=== PATIENT | male | born 1935 | race Caucasian/White ===

== ENCOUNTER 2017-06-06 13:45 | Emergency (ER) | payer MEDICARE, OTHER ==
[2005-05-12 11:13] VITALS: BP 129/72
[~2017-06-06] VITALS: Ht 167.6 cm; Wt 90.9 kg
[2017-06-06 13:45] VITALS: BP 124/58; TEMP 98.9
[~2017-06-06 13:45] MED LIST: ASPIRIN E.C. 8181 MG PO; CALCIUM1 CAP PO; CLARITIN 1010 MG/TAB PO; CLARITIN10 MG PO; DULERA1 ARO IH; ELIDEL1% TP; FENTANYL 25 MCG TP; FUROSEMIDE PO; HCTZ 25MG TAB25 MG PO; HCTZ 25MG25 MG PO; HYTRIN 2MG CAPSU2 MG PO; IMODIUM 2MG CAPS2 MG PO; IRON325 M1 PO; ISORDIL 20MG20 M1 PO; LASIX 20MG TABL20 MG PO; LIDODERM 5% PATC1 EA TP; MIRAPEX0.25 MG PO; MULTIPLE VITAMI1 CAP PO; NEURONTIN800 MG/TAB PO; NEXIUM 40MG40 MG PO; NEXIUM PO; NITROSTAT0.4 MG SL; NITROSTAT0.4 MG/TAB SL; NORCO 325 MG-7.1 TAB PO; OSCAL 500 TAB500 MG PO; PAXIL 20MG20 MG PO; PERCOCET 325 MG1 TA2 PO; PLAVIX 75MG TAB75 MG PO; PROVENTIL0.09 MG/A1 IN; ROXICODONE 55 MG/TAB PO; RT SPIRIVA18 MCG IN; SINGULAIR 110 MG/TAB PO; TENORMIN 5050 MG/TAB PO; TERAZOSIN HCL PO; TYLENOL W/COD1 UDTAB PO; UNABLE; XARELTO10 MG PO; ZITHROMAX500 M2 PO; ZOCOR 40MG40 MG PO; ZOCOR40 MG PO; ZOLOFT 100MG100 MG PO; ZOLOFT100 MG PO
[2017-06-06 16:36] VITALS: PULSE 64
== END 2017-06-06 16:37 | disposition home or self-care (01) ==
LOC: COL.ER 13:45
DX: S01.112A Laceration without foreign body of left eyelid and periocular area, initial encounter (principal); J44.9 Chronic obstructive pulmonary disease, unspecified; I25.2 Old myocardial infarction; Z86.73 Personal history of transient ischemic attack (TIA), and cerebral infarction without residual deficits; Z86.79 Personal history of other diseases of the circulatory system; Z79.02 Long term (current) use of antithrombotics/antiplatelets; Z79.82 Long term (current) use of aspirin; W06.XXXA Fall from bed, initial encounter; W22.09XA Striking against other stationary object, initial encounter; Y92.009 Unspecified place in unspecified non-institutional (private) residence as the place of occurrence of the external cause

== ENCOUNTER → 2017-12-04 | Day surgery (SDC) | payer MEDICARE, OTHER ==
[2005-05-12 11:13] VITALS: BP 129/72
[~2017-12-04] VITALS: Ht 165.1 cm; Wt 93.6 kg
[~2017-12-04] MED LIST changes: +ASPIRIN 81M81 MG/TA2 PO; +ATROVENT NASAL15 ML NS; +BREO IH; +ELIQUIS 2.5 PO; +EPA FISH OIL1 SGL PO; +FLONASEALLERGY NS; +LEVAQUIN 750MG750 M1 PO; +PROTONIX 40MG T40 MG PO; +ZIAC 10/6.25M1 UDTAB PO
[2017-12-04 08:52] VITALS: BP 138/59; PULSE 59; TEMP 97.9
== END ==
LOC: COL.CAR 08:00
DX: I48.0 Paroxysmal atrial fibrillation (principal); I25.10 Atherosclerotic heart disease of native coronary artery without angina pectoris; Z95.820 Peripheral vascular angioplasty status with implants and grafts; Z95.1 Presence of aortocoronary bypass graft; Z79.82 Long term (current) use of aspirin; Z79.01 Long term (current) use of anticoagulants; Z87.891 Personal history of nicotine dependence; Z82.49 Family history of ischemic heart disease and other diseases of the circulatory system; Z68.34 Body mass index [BMI] 34.0-34.9, adult; E78.2 Mixed hyperlipidemia; I10 Essential (primary) hypertension; J44.9 Chronic obstructive pulmonary disease, unspecified; K90.0 Celiac disease; N40.0 Benign prostatic hyperplasia without lower urinary tract symptoms; R51 Headache; M43.04 Spondylolysis, thoracic region; M48.061 Spinal stenosis, lumbar region without neurogenic claudication; M89.38 Hypertrophy of bone, other site; M51.06 Intervertebral disc disorders with myelopathy, lumbar region; D50.9 Iron deficiency anemia, unspecified; N40.1 Benign prostatic hyperplasia with lower urinary tract symptoms; I73.9 Peripheral vascular disease, unspecified; M43.07 Spondylolysis, lumbosacral region; G89.29 Other chronic pain; G25.81 Restless legs syndrome; G47.30 Sleep apnea, unspecified; Z86.73 Personal history of transient ischemic attack (TIA), and cerebral infarction without residual deficits

== ENCOUNTER → 2018-04-06 | Outpatient (CLI) | payer MEDICARE, OTHER | LOC: COL.RAD 12:55 | DX: I72.3 Aneurysm of iliac artery (principal); I72.8 Aneurysm of other specified arteries; J84.10 Pulmonary fibrosis, unspecified; J43.9 Emphysema, unspecified; N28.1 Cyst of kidney, acquired; K80.20 Calculus of gallbladder without cholecystitis without obstruction; K43.9 Ventral hernia without obstruction or gangrene | CPT/HCPCS: Q9967 ==

== ENCOUNTER 2018-08-31 13:08 | Inpatient (IN) | payer MEDICARE, OTHER ==
[2005-05-12 11:13] VITALS: BP 129/72
[2018-08-31] VITALS (11 sets, daily range): BP systolic 110–173; BP diastolic 52–91; PULSE 60–70; TEMP 97.2–98.1
[~2018-08-31] VITALS: Ht 165.1 cm; Wt 90.8 kg
[2018-08-31 14:00] LABS: HEMATOCRIT 46.6 % (42.0-52.0); HEMOGLOBIN 15.1 g/dl (13.5-18.0); MEAN CELL VOLUME 95 fl (80.0-100.0); MEAN CORPUSCULAR HEMOGLOBIN 31 pg (27.0-31.0); MEAN CORPUSCULAR HGB CONC 32 g/dl (33.0-37.0); MEAN PLATELET VOLUME 11.7 fl (7.4-10.4); PLATELET COUNT 192 K/mm3 (130-400); RED BLOOD COUNT 4.89 M/mm3 (4.20-5.60); REDCELL DISTRIBUTION WIDTH-CV 15.6 % (11.5-14.5)
[2018-08-31 14:13] LABS: CALCIUM 9.7 mg/dL (8.4-10.2); CREATININE, serum 1.18 mg/dL (0.66-1.25); POTASSIUM 4.4 mmol/L (3.4-5.0)
[2018-08-31] MEDS ORDERED: NEURONTIN800 MG/TAB PO (15:09)
[2018-08-31] MEDS ORDERED: CALCIUM CARBON650 M2 PO (15:17)
[2018-08-31] MEDS ORDERED: DULERA1 ARO IH (15:18)
[2018-08-31] MEDS ORDERED: PAXIL 20MG20 MG PO (15:20)
[2018-08-31] MEDS ORDERED: HCTZ 25MG TAB25 MG PO (15:23)
[2018-09-01 03:39] VITALS: BP 102/58; PULSE 60
[2018-09-01 08:00] VITALS: BP 106/39; PULSE 81; TEMP 98.2
[2018-09-01 10:56] VITALS: BP 123/45; PULSE 65; TEMP 96.8
[2018-09-01] MEDS ORDERED: CEPHALEXIN500 M1 PO (13:48)
== END 2018-09-01 14:47 | disposition home or self-care (01) | DRG 244 ==
LOC: COL.CAR 13:08 → MEDICAL 18:41
PROVIDERS: Internal Medicine Cardiovascular Disease
PROC: 0JH606Z Insertion of Pacemaker, Dual Chamber into Chest Subcutaneous Tissue and Fascia, Open Approach (ICD-10-PCS; principal; 2018-08-31)
PROC: 02H63JZ Insertion of Pacemaker Lead into Right Atrium, Percutaneous Approach (ICD-10-PCS; 2018-08-31)
PROC: 02HK3JZ Insertion of Pacemaker Lead into Right Ventricle, Percutaneous Approach (ICD-10-PCS; 2018-08-31)
DX: I49.5 Sick sinus syndrome (principal); I10 Essential (primary) hypertension; J44.9 Chronic obstructive pulmonary disease, unspecified; G89.29 Other chronic pain; K90.0 Celiac disease; I25.10 Atherosclerotic heart disease of native coronary artery without angina pectoris; Z95.1 Presence of aortocoronary bypass graft; M17.0 Bilateral primary osteoarthritis of knee; G47.33 Obstructive sleep apnea (adult) (pediatric); Z86.73 Personal history of transient ischemic attack (TIA), and cerebral infarction without residual deficits; I70.203 Unspecified atherosclerosis of native arteries of extremities, bilateral legs; Z88.8 Allergy status to other drugs, medicaments and biological substances; Z87.891 Personal history of nicotine dependence; Z66 Do not resuscitate
CPT/HCPCS: C1785; C1894; C1898; J0690; J2250; J3010; Q9967